=== PATIENT | female | born 2000 | race Caucasian/White ===

== ENCOUNTER 2021-10-20 13:51 | Observation (INO) ==
[2021-10-20] MEDS ORDERED: SODIUM CHLORIDE 0.9% 1000ML 1,000 ML IV SCH (14:16)
--- NOTE | 2021-10-20 14:31 | Emergency Department Note ---
History of Present Illness General Chief complaint: Abdominal Pain Stated complaint: LRQ PAIN Time Seen by Provider: 10/20/21 14:00 History of Present Illness Maximum Pain Intensity: 6 Patient is a 21-year-old female with past medical history significant for anxiety, narcolepsy and seasonal allergies who presents emergency department for evaluation of right lower quadrant abdominal pain. Her symptoms started last evening. It has been a constant pain that is primarily in the right lower quadrant. It does not really radiate. Is worse with bearing down, movement like walking or coughing. She is currently menstruating. She is on a control pill, menses started a few days early. She has subjectively felt feverish and had a headache she has been nauseous and vomited a few times. She has not recorded a temperature with a thermometer. She has not taken anything for pain which she currently rates a 6/10. She denies any urinary symptoms. No gynecologic history. She is sexually active in a monogamous relationship with one partner, and has no concern for STIs. Allergies Allergy/AdvReac Type Severity Reaction Status Date / Time No Known Allergies Allergy Verified 10/20/21 16:39 Past Med/Surg History Medical History Anxiety Environmental and seasonal allergies Narcolepsy Surgical History No pertinent past surgical history Social History Smoking Status: Never smoker Hx Alcohol Use: Yes Alcohol Intake Frequency: Monthly or Less Current Living Situation Comment: [employer] student, apartment with roommates Feels Safe at Home: Yes Review of Systems A total of 10 systems reviewed and were otherwise negative Physical Exam Vital Signs Vital Signs - 24 hr 10/20/21 13:57 Temperature 36.3 C L Temperature Source Temporal Artery Scan Pulse Rate 81 Respiratory Rate 16 Blood Pressure 110/70 Blood Pressure Mean 83 Pulse Oximetry 99 Oxygen Delivery Method Room Air Sepsis Recent Fever Within 48 Hours No Sepsis New/Unexplained Change in Mental Status No Sepsis Action Taken by Nursing No Action Required CONSTITUTIONAL: Patient is a pleasant, well-appearing 21-year-old female who is awake and alert and laying on the gurney in no acute distress. EYES: Pupils equal, round, reactive to light and accommodation. EOMs intact without nystagmus. Sclera are anicteric. ENT: Tympanic membranes intact, with normal landmarks. External canals are clear. Oral and nasopharynx are clear. Mucous membranes are moist, no lesions, tongue and gums appear normal. CARDIOVASCULAR: Regular rate and rhythm, with normal S1 and S2, no murmur or gallop or rub is heard. Peripheral pulses easy to palpable. RESPIRATORY: Breath sounds equal and clear to auscultation without wheezes, rales, or rhonchi heard. Full and equal chest expansion without accessory muscle use or retractions. GI: Bowel sounds are present. Abdomen is soft, scaphoid, tender to percussion and palpation across the entire lower abdomen but primarily in the right lower quadrant with voluntary guarding. MUSCULOSKELETAL: Full range of motion of extremities x 4 with good strength. No cyanosis, edema, joint tenderness or swelling. No deformity. INTEGUMENTARY: No lesions or rash, normal skin turgor. NEUROLOGICAL: Alert, oriented, and cooperative. Cranial nerves, sensation and strength grossly intact. Pupils round, equal, and react to light, EOMs are full. LYMPH: No lymphadenopathy. Course Course The patient was seen and assessed as above. Old records are reviewed. She presents the emergency department for evaluation of right lower quadrant abdominal pain. IV lock was initiated and laboratory studies were collected. CBC with differential CMP, lipase, urinalysis and serum hCG were collected. She was hydrated with normal saline solution. She was offered but declined medication for pain. CT scan of the abdomen and pelvis with IV contrast was ordered. Laboratory studies note an elevated white count at 17,600 left shift and bandemia noted. No anemia. Electrolytes, renal functions and transaminases are normal. Lipase within normal limits. Serum hCG is negative. Urine microscopy is clear without signs of infection. CT scan of the abdomen and pelvis with IV contrast is consistent with acute appendicitis. The appendix is dilated and fluid-filled measuring up to 10 mm. There is wall thickening and hyperemia with some inflammation. Calcified appendicoliths are noted. No organized fluid collection to indicate abscess. CT scan findings were discussed with the patient. A Covid swab was obtained for preoperative purposes. Consultation was placed with general surgery, Billy Trent PA-C working with Dr. Ramos. Patient is aware that she will be going to the OR later this evening. Administered Medications Discontinued Medications Sodium Chloride (Nss 1000ml) 1,000 mls @ 999 mls/hr IV .Q1H1M VALENTINA Stop: 10/20/21 15:16 Last Infusion: 10/20/21 15:43 Dose: 0 mls/hr Documented by: [id number] Admin: 10/20/21 14:35 Dose: 999 mls/hr Documented by: [id number] Ioversol (Optiray 320 100ml) 94 ml IV ONCE ONE Stop: 10/20/21 16:21 Last Admin: 10/20/21 16:23 Dose: 94 ml Documented by: [id number] Medical Decision Making Differential Diagnosis Differential diagnoses considered included UTI, pyelonephritis, kidney stone, appendicitis, dysmenorrhea, ovarian cyst, ovarian torsion, , ectopic , PID, tubo-ovarian abscess, hernia, musculoskeletal pain, among others. Medical Records Attestation: I reviewed the patient's medical records. Home Medications Current Medication List: was personally reviewed by me Laboratory Data Attestation: I reviewed the patient's lab results. Result diagrams: 10/20/21 14:25 10/20/21 14:25 Lab Results 10/20/21 10/20/21 10/20/21 Range/Units 14:25 14:25 14:25 WBC 17.69 H (4.8-10.8) K/uL RBC 4.38 (4.2-5.4) M/uL Hgb 14.0 (12.0-16.0) g/dL Hct 41.1 (37-47) % MCV 93.8 (80-100) fL MCH 32.0 (25-34) pg MCHC 34.1 (32-36) g/dL RDW Std Deviation 43.1 (36.4-46.3) fL RDW Coeff of Rommel 12.5 (11.5-14.5) % Plt Count 308 (130-400) K/uL MPV 10.3 (7.4-10.4) fL Immature Gran % (Auto) 0.2 % Neut % (Auto) 80.4 % Lymph % (Auto) 11.6 % Dent % (Auto) 6.8 % Eos % (Auto) 0.8 % Baso % (Auto) 0.2 % Neut # (Auto) 14.21 H (1.4-6.5) K/uL Lymph # (Auto) 2.06 (1.2-3.4) K/uL Dent # (Auto) 1.21 H (0.11-0.59) K/uL Eos # (Auto) 0.14 (0-0.5) K/uL Baso # (Auto) 0.03 (0-0.2) K/uL Immature Gran # (Auto) 0.04 H (0.00-0.02) K/uL Sodium 138 (136-145) mmol/L Potassium 3.6 (3.5-5.1) mmol/L Chloride 105 (98-107) mmol/L Carbon Dioxide 29 (21-32) mmol/L Anion Gap 4 (3-11) BUN 11 (6-23) mg/dl Creatinine 0.73 (0.6-1.2) mg/dl Est Cr Clr Drug Dosing 107.9 ml/min Est GFR ( Amer) 134.5 ml/min Est GFR (Non-Af Amer) 116.1 ml/min BUN/Creatinine Ratio 15.1 (10-20) Glucose 83 (70-99(Fasting)) mg/dl Calcium 9.2 (8.5-10.1) mg/dl Total Bilirubin 0.5 (0.2-1.0) mg/dl AST 12 L (13-39) U/L ALT 12 (7-52) U/L Alkaline Phosphatase 56 (34-104) U/L Total Protein 6.8 (6.0-8.3) gm/dl Albumin 4.2 (3.4-5.0) gm/dl Globulin 2.6 (2.5-4.0) gm/dl Albumin/Globulin Ratio 1.6 (0.9-2) Lipase 18 (11-82) U/L HCG, Qual Negative (Negative) Urine Color Urine Appearance (Clear) Urine pH (4.5-7.5) Ur Specific [place] (1.000-1.030) Urine Protein (Negative) Urine Glucose (UA) (Negative) Urine Ketones (Negative) Urine Blood (Negative) Urine Nitrite (Negative) Urine Bilirubin (Negative) Urine Urobilinogen (Negative) Ur Leukocyte Esterase (Negative) 10/20/21 Range/Units 14:25 WBC (4.8-10.8) K/uL RBC (4.2-5.4) M/uL Hgb (12.0-16.0) g/dL Hct (37-47) % MCV (80-100) fL MCH (25-34) pg MCHC (32-36) g/dL RDW Std Deviation (36.4-46.3) fL RDW Coeff of Rommel (11.5-14.5) % Plt Count (130-400) K/uL MPV (7.4-10.4) fL Immature Gran % (Auto) % Neut % (Auto) % Lymph % (Auto) % Dent % (Auto) % Eos % (Auto) % Baso % (Auto) % Neut # (Auto) (1.4-6.5) K/uL Lymph # (Auto) (1.2-3.4) K/uL Dent # (Auto) (0.11-0.59) K/uL Eos # (Auto) (0-0.5) K/uL Baso # (Auto) (0-0.2) K/uL Immature Gran # (Auto) (0.00-0.02) K/uL Sodium (136-145) mmol/L Potassium (3.5-5.1) mmol/L Chloride (98-107) mmol/L Carbon Dioxide (21-32) mmol/L Anion Gap (3-11) BUN (6-23) mg/dl Creatinine (0.6-1.2) mg/dl Est Cr Clr Drug Dosing ml/min Est GFR ( Amer) ml/min Est GFR (Non-Af Amer) ml/min BUN/Creatinine Ratio (10-20) Glucose (70-99(Fasting)) mg/dl Calcium (8.5-10.1) mg/dl Total Bilirubin (0.2-1.0) mg/dl AST (13-39) U/L ALT (7-52) U/L Alkaline Phosphatase (34-104) U/L Total Protein (6.0-8.3) gm/dl Albumin (3.4-5.0) gm/dl Globulin (2.5-4.0) gm/dl Albumin/Globulin Ratio (0.9-2) Lipase (11-82) U/L HCG, Qual (Negative) Urine Color Dark Yellow Urine Appearance Clear (Clear) Urine pH 6.0 (4.5-7.5) Ur Specific [place] 1.031 H (1.000-1.030) Urine Protein Negative (Negative) Urine Glucose (UA) Negative (Negative) Urine Ketones Trace H (Negative) Urine Blood Negative (Negative) Urine Nitrite Negative (Negative) Urine Bilirubin Negative (Negative) Urine Urobilinogen Negative (Negative) Ur Leukocyte Esterase Negative (Negative) Imaging Data Attestation: I personally reviewed and interpreted this imaging study as follows: Radiologist's Impression: Abdomen/Pelvis CT 10/20/21 14:15 CT SCAN OF THE ABDOMEN AND PELVIS WITH IV CONTRAST CLINICAL HISTORY: Right lower quadrant abdominal pain. COMPARISON STUDY: No priors. TECHNIQUE: Following the IV administration of 94 cc of Optiray 320, CT scan of the abdomen and pelvis is performed from the lung bases to the proximal femora. Images are reviewed in the axial, sagittal, and coronal planes. IV contrast was administered without complication. A dose lowering technique was utilized adhering to the principles of ALARA. CT DOSE: 270.29 mGy.cm FINDINGS: Lung bases: The heart is normal in size and without pericardial effusion. The lung bases are clear. Liver: The contrast-enhanced liver is normal in size, contour, and attenuation. There is no intrahepatic biliary ductal dilatation. The hepatic veins and portal veins are patent. Periportal edema is observed. Scattered hepatic granulomas are certainly noted. Gallbladder: The gallbladder wall appears mildly thickened, likely related to periportal edema. Spleen: Normal in size and attenuation. There are scattered calcified splenic granulomas. Pancreas: Unremarkable. Adrenal glands: Unremarkable. Kidneys: The contrast enhanced kidneys are normal in size and without hydronephrosis. The kidneys enhance symmetrically. Abdominal vasculature: The abdominal aorta is normal in course and caliber. Bowel: No bowel obstruction is identified. The appendix is dilated and fluid- filled measuring up to 10 mm in diameter. This is best seen on axial image #281. The appendiceal wall is thickened and hyperemic and there is mild periappendiceal inflammation. Calcified appendicoliths are seen on image #289. Findings are consistent with acute appendicitis. No organized fluid collection is seen to indicate abscess. Peritoneum: There is no intraperitoneal free air or abdominal ascites. Lymphadenopathy: Prominent mesenteric lymph nodes in the right lower quadrant measure up to 8 mm in short axis. These are likely reactive. Pelvic viscera: The bladder, uterus, and adnexa are normal as visualized noting bilateral ovarian follicles. A vaginal pessary is in place. There is a moderate volume of free fluid in the cul-de-sac. Skeletal structures: No lytic or blastic lesions are seen. A 2 cm benign- appearing sclerotic focus is noted in the right proximal femur. IMPRESSION: 1. Findings are consistent with acute appendicitis. 2. There is no evidence of abscess or perforation. 3. A small to moderate volume of nonspecific free fluid is seen in the cul-de-sac. ACT 112: Negative or not required by law. Electronically signed by: Wallace Montemayor M.D. 10/20/2021 4:30 PM MDM Narrative See ED Course. Impression & Plan Acute appendicitis Discharge Plan Visit Data Chief Complaint: Abdominal Pain Stated Complaint: LRQ PAIN ED Provider: Frederic Durant ED Midlevel Provider: Fuad Tenorio Discharge Problem: Acute appendicitis Patient Disposition: Being Evaluated by Surgeon Forms Stand Alone Forms: [facility] Referrals Referrals: PCP,NO [Primary Care Provider] -
[2021-10-20 14:41] LABS: Basophils # (auto) 0.03 K/uL (0-0.2); Basophils % (auto) 0.2 %; Eosinophils # (auto) 0.14 K/uL (0-0.5); Eosinophils % (auto) 0.8 %; Hematocrit (blood only) 41.1 % (37-47); Immature Granulocytes # (auto) 0.04 K/uL (0.00-0.02); Immature Granulocytes % (auto) 0.2 %; Lymphocytes # (auto) 2.06 K/uL (1.2-3.4); Lymphocytes % (auto) 11.6 %; Mean Corpuscular Hgb Conc 34.1 g/dL (32-36); Mean Corpuscular Volume 93.8 fL (80-100); Mean Platelet Volume 10.3 fL (7.4-10.4); Monocytes # (auto) 1.21 K/uL (0.11-0.59); Monocytes % (auto) 6.8 %; Neutrophils # (auto) 14.21 K/uL (1.4-6.5); Neutrophils % (auto) 80.4 %; Platelet Count 308 K/uL (130-400); RDW Coefficient of Variation 12.5 % (11.5-14.5); RDW Standard Deviation 43.1 fL (36.4-46.3); Red Blood Count 4.38 M/uL (4.2-5.4); White Blood Count 17.69 K/uL (4.8-10.8)
[2021-10-20 14:57] LABS: Pregnancy Test, Serum Negative (Negative)
[2021-10-20 15:08] LABS: Appearance Urine Clear (Clear); Bilirubin Urine Negative (Negative); Blood Urine Negative (Negative); Color Urine Dark Yellow; Glucose Urine UA Negative (Negative); Ketones Urine Trace (Negative); Leukocyte Esterase Urine Negative (Negative); Nitrite Urine Negative (Negative); Protein Urine Negative (Negative); Specific Gravity Urine 1.031 (1.000-1.030); Urobilinogen Urine Negative (Negative)
[2021-10-20 15:09] LABS: Albumin Globulin Ratio 1.6 (0.9-2); Albumin Level 4.2 gm/dl (3.4-5.0); BUN Creatinine Ratio 15.1 (10-20); Bilirubin,Total 0.5 mg/dl (0.2-1.0); Calcium 9.2 mg/dl (8.5-10.1); Creatinine Clr Calc Pharmacy 107.9 ml/min; Est GFR (African American) 134.5 ml/min; Est GFR (Non-African American) 116.1 ml/min; Globulin 2.6 gm/dl (2.5-4.0); Potassium 3.6 mmol/L (3.5-5.1); Total Protein 6.8 gm/dl (6.0-8.3)
[2021-10-20] MEDS ORDERED: OPTIRAY 320 100ml IV ONE (16:20)
--- NOTE | 2021-10-20 16:32 | CT Scan Report ---
CT SCAN OF THE ABDOMEN AND PELVIS WITH IV CONTRAST CLINICAL HISTORY: Right lower quadrant abdominal pain. COMPARISON STUDY: No priors. TECHNIQUE: Following the IV administration of 94 cc of Optiray 320, CT scan of the abdomen and pelvi s is performed from the lung bases to the proximal femora. Images are reviewed in the axial, sagittal , and coronal planes. IV contrast was administered without complication. A dose lowering technique wa s utilized adhering to the principles of ALARA. CT DOSE: 270.29 mGy.cm FINDINGS: Lung bases: The heart is normal in size and without pericardial effusion. The lung bases are clear. Liver: The contrast-enhanced liver is normal in size, contour, and attenuation. There is no intrahepa tic biliary ductal dilatation. The hepatic veins and portal veins are patent. Periportal edema is obs erved. Scattered hepatic granulomas are certainly noted. Gallbladder: The gallbladder wall appears mildly thickened, likely related to periportal edema. Spleen: Normal in size and attenuation. There are scattered calcified splenic granulomas. Pancreas: Unremarkable. Adrenal glands: Unremarkable. Kidneys: The contrast enhanced kidneys are normal in size and without hydronephrosis. The kidneys enh ance symmetrically. Abdominal vasculature: The abdominal aorta is normal in course and caliber. Bowel: No bowel obstruction is identified. The appendix is dilated and fluid-filled measuring up to 10 mm in diameter. This is best seen on axial image #281. The appendiceal wall is thickened and hyper emic and there is mild periappendiceal inflammation. Calcified appendicoliths are seen on image #289. Findings are consistent with acute appendicitis. No organized fluid collection is seen to indicate a bscess. Peritoneum: There is no intraperitoneal free air or abdominal ascites. Lymphadenopathy: Prominent mesenteric lymph nodes in the right lower quadrant measure up to 8 mm in s hort axis. These are likely reactive. Pelvic viscera: The bladder, uterus, and adnexa are normal as visualized noting bilateral ovarian fol licles. A vaginal pessary is in place. There is a moderate volume of free fluid in the cul-de-sac. Skeletal structures: No lytic or blastic lesions are seen. A 2 cm benign-appearing sclerotic focus is noted in the right proximal femur. IMPRESSION: 1. Findings are consistent with acute appendicitis. 2. There is no evidence of abscess or perforation. 3. A small to moderate volume of nonspecific free fluid is seen in the cul-de-sac. ACT 112: Negative or not required by law. Electronically signed by: Wallace Montemayor M.D. 10/20/2021 4:30 PM
[2021-10-20] MEDS ORDERED: ROCURONIUM BROMIDE 10 MG/ML 5 ML VIAL IV ONE (17:20)
[2021-10-20] MEDS ORDERED: LIDOCAINE 2% 2 ML VIAL/AMP(20MG/ML) INFIL ONE (17:20)
[2021-10-20] MEDS ORDERED: MIDAZOLAM HCL 1 MG/ML 2ML VIAL ONE (17:20)
[2021-10-20] MEDS ORDERED: fentaNYL citrate 100 MCG/2 ML VIAL ONE ×2 (17:20→19:14)
[2021-10-20] MEDS ORDERED: PROPOFOL IV EMULSION 10 MG/ML 20 ML VIAL IV ONE (17:20)
--- NOTE | 2021-10-20 17:29 | History & Physical Report ---
Date of Service October 20, 2021 Assessment & Plan (1) Acute appendicitis: Plan: COVID test is pending Plan for laparoscopic appendectomy this evening Antibiotics can be given by anesthesia As above. clinically c/w acute appendicitis discussed options and risks (bleeding/infection/blood clots/injury to another organ etc...) questions answered. pt agreeable. will proceed with laparoscopic /possible open appendectomy. History of Present Illness Primary Care Provider: NO PCP 21 y/o female awakened at 1 AM with RLQ pain. Nausea without vomiting. No fevers or chills. Nothing to eat or drink today. No previous abdominal pain or surgery. She is in her final semester at [employer]. Allergies Allergy/AdvReac Type Severity Reaction Status Date / Time nickel Allergy Rash Unverified 10/20/21 17:38 Home Medications Medication Instructions Recorded Confirmed Type escitalopram oxalate 10 mg tablet 10 mg PO DAILY 10/20/21 10/20/21 History fluticasone 113 mcg-salmeterol 14 1 inh INHALATION BID 10/20/21 10/20/21 History mcg/actuation breath activated powdr levocetirizine 5 mg tablet 5 mg PO QPM 10/20/21 10/20/21 History methylphenidate HCl 40 mg biphasic 40 mg PO QAM 10/20/21 10/20/21 History 50-50 capsule,extended release norethindrone 1.5 mg-ethinyl 1 tab PO DAILY 10/20/21 10/20/21 History estradiol 30 mcg(21)/iron 75 mg(7) tablet (June FE 1.5/30 (28)) Past Med/Surg History Medical History Anxiety Environmental and seasonal allergies Narcolepsy Surgical History No pertinent past surgical history Social History Smoking Status: Never smoker Hx Alcohol Use: Yes Alcohol Intake Frequency: Monthly or Less Current Living Situation Comment: [employer] student, apartment with roommates Feels Safe at Home: Yes Review of Systems Constitutional: + anorexia; no fever and no chills Gastrointestinal: + abdominal pain and + nausea; no vomiting Physical Exam Constitutional: WD/WN, vitals as above Respiratory: normal respiratory effort, lungs clear to auscultation Cardiovascular: RRR, no murmur, no edema Gastrointestinal (Abdomen): Inspection/Auscultation: abdomen normal to inspection; abdomen not distended Percussion/Palpation: + abdomen tender (localized to RLQ), + guarding and abdomen soft Results & Data Results & Data ([facility]) Vital Signs (Past 12 Hours) Vital Signs Temp Pulse Resp BP Pulse Ox 10/20/21 13:57 36.3 C L 81 16 110/70 99 PG Care Time/CCT Total # of Minutes Spent Total Time Spent with Patient: Total time spent is greater than 50% in coordination of care (as documented) at patient's floor/unit and/or counseling patient: Coding Level of Care Code None Diagnoses Acute appendicitis K35.80
[2021-10-20] MEDS ORDERED: EPINEPHrine INJ 1 MG/ML AMP ONE (17:31)
[2021-10-20] MEDS ORDERED: BUPIVACAINE 0.5 % 5 MG/1 ML MPF 30ML VIAL ONE (17:31)
--- NOTE | 2021-10-20 17:45 | Anesthesiology Consultation ---
Date of Service October 20, 2021 Assessment & Plan ASA [id number] Proposed Anesthesia Anesthesia Type: General Risk / Benefits Reviewed With: PT / POA / Parent / Guardian, Accepts Plan and Informed Consent Obtained History Surgery Operation Date: 10/20/21 13:45 Proposed Procedures p Laparoscopic Appendectomy - Karan Ramos, DO Height/Weight Height: 5 ft 5 in Weight: 58.3 kg Allergies Allergy/AdvReac Type Severity Reaction Status Date / Time nickel Allergy Rash Unverified 10/20/21 17:38 Medications Home Medications Medication Instructions Recorded Confirmed Last Taken escitalopram oxalate 10 mg tablet 10 mg PO DAILY 10/20/21 10/20/21 Unknown fluticasone 113 mcg-salmeterol 14 1 inh INHALATION BID 10/20/21 10/20/21 Unknown mcg/actuation breath activated powdr levocetirizine 5 mg tablet 5 mg PO QPM 10/20/21 10/20/21 Unknown methylphenidate HCl 40 mg biphasic 40 mg PO QAM 10/20/21 10/20/21 Unknown 50-50 capsule,extended release norethindrone 1.5 mg-ethinyl 1 tab PO DAILY 10/20/21 10/20/21 Unknown estradiol 30 mcg(21)/iron 75 mg(7) tablet (Junel FE 1.5/30 (28)) NPO Date Last Intake of Fluids: 10/20/21 Time Last Intake of Fluids: 09:00 Date Last Intake of Solids: 10/20/21 Time Last Intake of Solids: 09:00 Past Medical History Medical History Anxiety Environmental and seasonal allergies Narcolepsy Exercise / Class Metabolic Activity II 4-5 Yardwork/Stairs/Walk up hill Past Surgical History Surgical History No pertinent past surgical history Past Anesthesia History No Hx of Anesthesia Complications and No Family Hx of Anesthesia Complications History of PONV No Hx of PONV and No Hx of Motion Sickness Social History Smoking Status: Never smoker Hx Alcohol Use: Yes Review of Systems denies fever/cough/ colds/ chest pain/ SOB/ JESS denies JESS Physical Exam Vital Signs Last Vital Signs Temp 36.3 C L 10/20/21 13:57 Pulse 81 10/20/21 13:57 Resp 16 10/20/21 13:57 BP 110/70 10/20/21 13:57 Pulse Ox 99 10/20/21 13:57 ENMT Mouth: no TMJ abnormality and no dentition abnormality Thyromental Distance: > or= 3.5 Finger Breadths Mallampati Class: II Neck neck extension not limited Respiratory normal respiratory effort; no respiratory distress Auscultation: lungs clear to auscultation bilaterally Cardiovascular Rate/Rhythm: regular rate and regular rhythm Neurologic moves all extremities Psychiatric Orientation: alert and oriented x 3 Testing Laboratory Results 10/20/21 14:25 10/20/21 14:25 Urine Color Dark Yellow 10/20/21 14:25 Urine Appearance Clear (Clear) 10/20/21 14:25 Urine pH 6.0 (4.5-7.5) 10/20/21 14:25 Ur Specific [place] 1.031 (1.000-1.030) H 10/20/21 14:25 Urine Protein Negative (Negative) 10/20/21 14:25 Urine Glucose (UA) Negative (Negative) 10/20/21 14:25 Urine Ketones Trace (Negative) H 10/20/21 14:25 Urine Nitrite Negative (Negative) 10/20/21 14:25 Ur Leukocyte Esterase Negative (Negative) 10/20/21 14:25
[2021-10-20] MEDS ORDERED: ceFAZolin 2,000 MG/15 ML IV PUSH IV ONE (18:12)
[2021-10-20] MEDS ORDERED: ceFAZolin 2000MG 2,000 MG/15 ML SYR IV ONE (18:16)
[2021-10-20] MEDS ORDERED: NEOSTIGMINE METHYLSULFATE 1 MG/ML 10ML VIAL ONE (18:43)
[2021-10-20] MEDS ORDERED: ONDANSETRON INJ 2 MG/ML 2 ML VIAL ONE (18:43)
[2021-10-20] MEDS ORDERED: DEXAMETHASONE SOD INJ 4 MG/ML VIAL ONE (18:43)
[2021-10-20] MEDS ORDERED: GLYCOPYRROLATE 0.2 MG/ML VIAL ONE ×2 (18:44→18:53)
[2021-10-20] MEDS ORDERED: EPINEPHrine INJ 1 MG/ML AMP IV ONE (19:00)
--- NOTE | 2021-10-20 19:07 | Operative Report ---
PG Post Operative Report Pre & Post Diagnosis Operation Date: 10/20/21 13:45 Pre-Op Diagnosis: Acute appendicitis Post-Op Diagnosis: Acute appendicitis I identified the patient and participated in the time-out.: Yes Procedure Operation Date: 10/20/21 13:45 Actual Procedures p Laparoscopic Appendectomy(Not Applicable) - Karan Ramos DO Surgeon Karan Ramos DO Voice Over Artist n/a Estimated Blood Loss 5 Findings Consistent with Post-Op Diagnosis Specimens appendix Description of Procedure After informed consent was obtained the patient was taken to the operating room and placed in supine position. After successful intubation a Arredondo catheter was placed and the left arm was tucked. I began by making a periumbilical incision with an 11 blade scalpel and carried this down through the soft tissue using electrocautery. The anterior rectus fascia was opened using electrocautery and 2 #0 Vicryl stay sutures were placed. The peritoneum was elevated using hemostats and incised under direct vision using a Metzenbaum scissor. A finger sweep was performed. A 12 mm Olsen trocar was placed and the abdomen was insufflated to 18 mmHg. A laparoscope was inserted and the abdomen was examined in 360. A suprapubic 5 mm port and a left lower quadrant 12 mm port were placed under direct vision. The patient was air planed to the left as well as placed in a slight Trendelenburg position. We began by looking in the right lower quadrant. We were able to readily identify the appendix and it was grossly inflamed. It had not perforated. There is a small amount of purulent fluid in the right lower quadrant and the pelvis. We immediately irrigated and suctioned this out. I was able to use primarily blunt dissection to pull the appendix away from the right lower quadrant sidewall. I was able to make a small window in the mesentery of the appendix. I was then able to use a MALIK brown cartridge stapler to transect first the mesentery of the appendix followed by the appendix itself at its base with the cecum with a second firing of the MALIK brown cartridge 60 mm stapler It was then placed into an Endo Catch bag and removed from the camera port site. We thoroughly irrigated the right lower quadrant as well as the pelvis. There was adequate hemostasis. I ran the small bowel backwards from the terminal ileum for about 6 feet all of which was normal. All the peritoneal surfaces were normal. Small/ large bowel, liver, stomach etc. all appeared grossly normal. We did a final irrigation and then removed all the trochars and desufflated the abdomen. The fascia of the camera port as well as the left lower quadrant were closed using 0 Vicryl in [id number] fashion. Wounds were all irrigated and closed using 4-0 Monocryl. Marcaine was injected around them for postoperative analgesia and skin glue used as a dressing. The patient was awakened, extubated and transferred to recovery in stable condition. I attest to the content of the Intraoperative Record and any orders documented therein. Any exceptions are noted below. I attest to the content of the Intraoperative Record and any orders documented therein. Any exceptions are noted below.
[2021-10-20] MEDS ORDERED: HYDROmorphone INJ 2 MG/ML SYR/VIAL IV PRN (19:15)
[2021-10-20] MEDS ORDERED: ONDANSETRON INJ 2 MG/ML 2 ML VIAL IV PRN ×2 (19:15→20:28)
[2021-10-20] MEDS ORDERED: ePHEDrine sulfate 50 MG/ML AMP IV PRN (19:15)
[2021-10-20] MEDS: fentaNYL citrate 100 MCG/2 ML VIAL IV PRN ×4 (19:15→19:40)
[2021-10-20] MEDS ORDERED: BUPIVACAINE 0.5 % 5 MG/1 ML MPF 30ML VIAL INJ ONE (19:15)
[2021-10-20] MEDS ORDERED: ATROPINE SULFATE 0.1 MG/ML 10ML SYR IV PRN (19:15)
--- NOTE | 2021-10-20 19:47 | Anesthesiology Progress Note ---
Date of Service October 20, 2021 Anesthesia Post Procedure Vital Signs Vital Signs: Temp Pulse Pulse Pulse Resp BP BP 10/20/21 19:40 100 H 16 10/20/21 19:30 88 16 10/20/21 19:20 78 12 10/20/21 19:10 36.2 C L 90 12 10/20/21 18:03 37 C 85 18 113/78 10/20/21 17:38 80 18 123/76 10/20/21 13:57 36.3 C L 81 16 110/70 BP Pulse Ox 10/20/21 19:40 129/77 96 10/20/21 19:30 123/76 98 10/20/21 19:20 123/73 100 10/20/21 19:10 119/73 100 10/20/21 18:03 98 10/20/21 17:38 96 10/20/21 13:57 99 Pain Intensity Abdomen: Pain Intensity: 6 Transfer of Care Handoff Completed per policy Notes Mental Status: alert / awake / arousable and participated in evaluation Patient Amnestic to Procedure: Yes Nausea / Vomiting: adequately controlled Pain: adequately controlled Airway Patency, RR, SpO2: stable & adequate BP & HR: stable & adequate Hydration State: stable & adequate Anesthetic Complications: no major complications apparent and Pt Satisfied with anesthetic care
[2021-10-20] MEDS ORDERED: ACETAMINOPHEN 1,000 MG/100 ML VIAL IV PRN (20:28)
[2021-10-20] MEDS: MoRPHine SULFATE 4 MG/ML 1 ML CARP\\VIAL IV PRN ×2 (20:58→23:59)
[2021-10-20] MEDS: LACTATED RINGER'S 1,000 ML IV SCH (21:00)
[2021-10-20] MEDS ORDERED: COUGH DROP (SUGAR FREE) LOZ 24 LOZ/1 BOX BUCCAL ONE (22:41)
[2021-10-21] MEDS: ceFAZolin 1000MG 1,000 MG/7.5 ML SYR IV SCH ×2 (00:03→08:21)
[2021-10-21] MEDS ORDERED: Nursing to Pharmacy Communication SCH (02:15)
[2021-10-21] MEDS: MoRPHine SULFATE 4 MG/ML 1 ML CARP\\VIAL IV PRN (03:12)
[2021-10-21] MEDS: FLUTICASONE/VILANTEROL 100/25MCG 14 PUFFS/INHALER INH SCH (08:21)
[2021-10-21] MEDS: LACTATED RINGER'S 1,000 ML IV SCH (08:22)
--- NOTE | 2021-10-21 08:30 | Surgery Progress Note ---
Date of Service October 21, 2021 Assessment & Plan (1) Acute appendicitis: Plan: POD 1 lap appy seen with Dr. Ramos CBC pending home if tolerates diet and labs are ok Clinically she looks good and is doing okay. However her white blood cell count went up today and her blood pressure is slightly down. I suspect this is reactive however I believe we should not discharge her yet. We will monitor her 1 more day continue IV antibiotics. Repeat her WBC with likely discharge tomorrow. Admission and Anticipated Discharge Date Admission Date: October 20, 2021 Subjective no nausea, pain controlled Physical Exam Gastrointestinal (Abdomen): Inspection/Auscultation: + abdominal surgical incision (dry) Percussion/Palpation: abdomen soft Results & Data ([facility]) Vital Signs (Past 12 Hours) Vital Signs Temp Pulse Resp BP Pulse Ox 10/21/21 07:30 36.6 C 65 16 95/56 L 97 10/21/21 04:03 36.7 C 70 16 101/55 L 95 10/20/21 23:37 36.6 C 72 16 122/66 96 10/20/21 22:42 36.6 C 82 16 115/65 95 10/20/21 21:20 36.9 C 78 16 128/76 96 10/20/21 20:52 36.6 C 103 H 16 131/76 95 PG Care Time/CCT Total # of Minutes Spent Total Time Spent with Patient: Total time spent is greater than 50% in coordination of care (as documented) at patient's floor/unit and/or counseling patient: Coding Level of Care Code None Diagnoses Acute appendicitis K35.30 Acute appendicitis type: with localized peritonitis Appendicitis abscess presence: without abscess Appendicitis gangrene presence: without gangrene Appendicitis perforation presence: without perforation (1) Acute appendicitis Acute appendicitis type: with localized peritonitis Appendicitis abscess presence: without abscess Appendicitis gangrene presence: without gangrene Appendicitis perforation presence: without perforation Qualified Code(s): K35.30 - Acute appendicitis with localized peritonitis, without perforation or gangrene
[2021-10-21 08:43] LABS: Basophils # (auto) 0.01 K/uL (0-0.2); Basophils % (auto) 0.1 %; Hematocrit (blood only) 36.4 % (37-47); Hemoglobin 12.3 g/dL (12.0-16.0); Immature Granulocytes # (auto) 0.04 K/uL (0.00-0.02); Immature Granulocytes % (auto) 0.2 %; Lymphocytes % (auto) 5.6 %; Mean Corpuscular Hemoglobin 31.5 pg (25-34); Mean Corpuscular Hgb Conc 33.8 g/dL (32-36); Mean Corpuscular Volume 93.1 fL (80-100); Mean Platelet Volume 10.7 fL (7.4-10.4); Monocytes # (auto) 1.28 K/uL (0.11-0.59); Monocytes % (auto) 6.5 %; Neutrophils % (auto) 87.6 %; Platelet Count 291 K/uL (130-400); RDW Coefficient of Variation 12.6 % (11.5-14.5); RDW Standard Deviation 42.9 fL (36.4-46.3); Red Blood Count 3.91 M/uL (4.2-5.4); White Blood Count 19.63 K/uL (4.8-10.8)
--- NOTE | 2021-10-21 08:46 | Discharge Summary ---
Date of Service October 21, 2021 Admission HPI Per Admitting Provider 21 y/o female awakened at 1 AM with RLQ pain. Nausea without vomiting. No fevers or chills. Nothing to eat or drink today. No previous abdominal pain or surgery. She is in her final semester at [employer]. Principal Diagnosis Acute appendicitis Discharge Exam Constitutional WD/WN, vitals as above Gastrointestinal (Abdomen) Inspection/Auscultation: + abdominal surgical incision (dry); abdomen not distended Percussion/Palpation: abdomen soft Discharge Data Allergies Allergy/AdvReac Type Severity Reaction Status Date / Time nickel Allergy Rash Unverified 10/20/21 17:38 Procedures Performed Operation Date: 10/20/21 13:45 Actual Procedures p Laparoscopic Appendectomy(Not Applicable) - Karan Ramos DO Ordered Studies 10/20/21 14:15 CT abd pelvis IV con only Stat Hospital Course (1) Acute appendicitis: 21 y/o female presented to the ER with RLQ abdominal pain that began overnight. White count was 17,[address] was consistent with acute appendicitis. She was taken to the operating room for laparoscopic appendectomy that evening and transferred to the surgical floor for overnight observation. The next day her white count had risen to 19,000. Although she was clinically doing well, IV antibiotics were continued another 24 hours. On POD 2 her white count improved to 11,000 and she was stable for discharge home on oral antibiotics. Total Time Total Time Spent Total Time Spent (In Minutes): 15 Discharge Plan Discharge Items Patient Disposition: Home - Self-Care Reason For Visit: APPY Discharge Diagnosis: Laparoscopic appendectomy Activity: As commented below Lifting: No more than 10 pounds Bathing Comment: OK to shower Exercise/Sports: Wait until after follow-up appointment Driving/Machine Use: Resume 3 days after discharge Non-emergency contact: Surgeon Call non-emergency contact if: you have any medication questions, your pain is not controlled, you have a fever, your temperature is above 101.5 and your wound has increased redness Follow-up/Referrals: Karan Ramos DO [Surgeon] - (Please call to schedule an appt in 1-2 weeks) PCP,NO [Primary Care Provider] - Diet: Regular Addtl Attending Provider Instructions: You can take ibuprofen 600 mg every 6 hours as needed for pain and alternate with Tylenol 650-1000 mg every 6 hours so that you are taking them 3 hours apart Pending Studies at Discharge: No Stand-Alone Forms: [facility], Work/School Release, Smoking Cessation Medications and DC Order Prescriptions: New amoxicillin-pot clavulanate 875-125 mg tablet 1 tab PO BID Qty: 10 RF: 0 Continued levocetirizine 5 mg tablet 5 mg PO QPM RF: 0 norethindrone-e.estradiol-iron [June FE 1.5/30 (28)] 1.5 mg-30 mcg (21)/75 mg (7) tablet 1 tab PO DAILY RF: 0 methylphenidate HCl 40 mg capsule,ER biphasic 50-50 40 mg PO QAM RF: 0 escitalopram oxalate 10 mg tablet 10 mg PO DAILY RF: 0 fluticasone propion-salmeterol 113-14 mcg/actuation aerosol powdr breath activated 1 inh INHALATION BID RF: 0 Discharge Orders: Discharge Order (Routine); Ordered 10/22/21 Ordered By: Sheldon Trent Admission Data Admit Date/Time: 10/20/21 19:02 Attending Provider: Karan Ramos Admit Provider: Karan Ramos Primary Care Provider: PCP,NO Coding Level of Care Code D/C DAY MANAGEMENT <30 MINS Diagnoses Acute appendicitis K35.30 Acute appendicitis type: with localized peritonitis Appendicitis abscess presence: without abscess Appendicitis gangrene presence: without gangrene Appendicitis perforation presence: without perforation
[2021-10-21] MEDS ORDERED: ESCITALOPRAM OXALATE 10 MG TAB PO SCH ×2 (09:00→21:00)
[2021-10-21] MEDS: AMPICILLIN/SULBACTAM SOD 3,000 MG in 0.9 % SODIUM CHLORIDE 100 ML IV SCH ×3 (10:54→22:36)
[2021-10-21] MEDS: ACETAMINOPHEN 500 MG TAB PO PRN ×2 (10:58→19:54)
[2021-10-21] MEDS: IBUPROFEN 600 MG TAB PO PRN ×2 (15:31→22:35)
[2021-10-21] MEDS ORDERED: SIMETHICONE 80 MG CHEW PO ONE (23:21)
[2021-10-22] MEDS: ACETAMINOPHEN 500 MG TAB PO PRN (04:23)
[2021-10-22] MEDS: AMPICILLIN/SULBACTAM SOD 3,000 MG in 0.9 % SODIUM CHLORIDE 100 ML IV SCH ×2 (04:24→09:07)
[2021-10-22 06:48] LABS: Basophils # (auto) 0.03 K/uL (0-0.2); Basophils % (auto) 0.3 %; Eosinophils # (auto) 0.16 K/uL (0-0.5); Eosinophils % (auto) 1.4 %; Hematocrit (blood only) 36.4 % (37-47); Hemoglobin 12.3 g/dL (12.0-16.0); Immature Granulocytes # (auto) 0.02 K/uL (0.00-0.02); Immature Granulocytes % (auto) 0.2 %; Lymphocytes # (auto) 3.29 K/uL (1.2-3.4); Lymphocytes % (auto) 27.9 %; Mean Corpuscular Hemoglobin 31.4 pg (25-34); Mean Corpuscular Hgb Conc 33.8 g/dL (32-36); Mean Corpuscular Volume 92.9 fL (80-100); Mean Platelet Volume 10.4 fL (7.4-10.4); Monocytes # (auto) 1.08 K/uL (0.11-0.59); Monocytes % (auto) 9.2 %; Neutrophils # (auto) 7.21 K/uL (1.4-6.5); Platelet Count 249 K/uL (130-400); RDW Coefficient of Variation 12.6 % (11.5-14.5); RDW Standard Deviation 42.6 fL (36.4-46.3); Red Blood Count 3.92 M/uL (4.2-5.4); White Blood Count 11.79 K/uL (4.8-10.8)
[2021-10-22] MEDS: IBUPROFEN 600 MG TAB PO PRN (07:37)
[2021-10-22] MEDS: FLUTICASONE/VILANTEROL 100/25MCG 14 PUFFS/INHALER INH SCH (07:38)
--- NOTE | 2021-10-22 08:34 | Surgery Progress Note ---
Date of Service October 22, 2021 Assessment & Plan (1) Acute appendicitis: Plan: POD 2 lap appy WBC 11, afebrile ok for d/c Augmentin x 5 days Admission and Anticipated Discharge Date Admission Date: October 20, 2021 Subjective no c/o, tolerating diet Physical Exam Gastrointestinal (Abdomen): Inspection/Auscultation: abdomen not distended Percussion/Palpation: abdomen soft Results & Data ([facility]) Vital Signs (Past 12 Hours) Vital Signs Temp Pulse Resp BP Pulse Ox 10/21/21 22:06 36.7 C 62 16 124/75 100 PG Care Time/CCT Total # of Minutes Spent Total Time Spent with Patient: Total time spent is greater than 50% in coordination of care (as documented) at patient's floor/unit and/or counseling patient: Coding Level of Care Code None Diagnoses Acute appendicitis K35.30 Acute appendicitis type: with localized peritonitis Appendicitis abscess presence: without abscess Appendicitis gangrene presence: without gangrene Appendicitis perforation presence: without perforation (1) Acute appendicitis Acute appendicitis type: with localized peritonitis Appendicitis abscess presence: without abscess Appendicitis gangrene presence: without gangrene Appendicitis perforation presence: without perforation Qualified Code(s): K35.30 - Acute appendicitis with localized peritonitis, without perforation or gangrene
== END 2021-10-22 10:42 | disposition home or self-care (01) ==
LOC: ED 13:51 → 3E 17:55 → ASU 17:55